=== PATIENT | female | born 2005 | race African-American/Black ===

== ENCOUNTER 2025-01-02 23:14 | Emergency (ER) | payer SELFPAY ==
[~2025-01-02] VITALS: Ht 162.6 cm; Wt 79.4 kg
[2025-01-02 23:18] VITALS: PULSE 65; RESP 18; TEMP 98.5
[2025-01-03] MEDS ORDERED: MEDROL4 M2 PO (00:27)
[2025-01-03 00:56] VITALS: BP 131/78; O2SAT 98
== END 2025-01-03 00:48 | disposition home or self-care (01) ==
LOC: ER 01-03 00:13
DX: R05.9 Cough, unspecified (principal); R07.89 Other chest pain; F17.210 Nicotine dependence, cigarettes, uncomplicated
CPT/HCPCS: 71045; 93005; 99283